=== PATIENT | male | born 1985 | race Caucasian/White ===

== ENCOUNTER 2017-10-04 23:40 | Emergency (ER) | payer SELFPAY, OTHER ==
[2017-10-05] MEDS: TRIMETHOPRIM/SULFAMETHOX (DS) TAB PO (02:23)
[2017-10-05] MEDS: CEPHALEXIN 500 MG CAP PO (02:23)
[2017-10-05] MEDS: IBUPROFEN 600 MG TAB PO (02:23)
== END 2017-10-05 02:51 | disposition home or self-care (01) ==
LOC: FTE 23:40
DX: S60.462A Insect bite (nonvenomous) of right middle finger, initial encounter (principal); L08.9 Local infection of the skin and subcutaneous tissue, unspecified; W57.XXXA Bitten or stung by nonvenomous insect and other nonvenomous arthropods, initial encounter; Y92.9 Unspecified place or not applicable
CPT/HCPCS: 99284